=== PATIENT | female | born 1970 | race African-American/Black ===

== ENCOUNTER 2018-06-22 18:05 | Emergency (ER) ==
[~2018-06-22] VITALS: Ht 157.5 cm; Wt 52.6 kg
[~2018-06-22 18:05] MED LIST: ALBU25PO2; BECL8.7A5; CITA10TA17; HYDR1TAB
--- NOTE | 2018-06-22 18:27 | NUR ---
BIB SELF FOR ASTHMA ATTACK, POSS INHALED MOLD FROM [facility] WHERE SHE'S STAYING. PT NOTED W ANXIETY. TO ER BED 10, HOOKED TO MONITOR, CHANGED TO GOWN, PROVIDED W WARM BLANKET, AWAITING MD CORRALES.
--- NOTE | 2018-06-22 18:37 | NUR ---
MINERVA DAVIES AT BEDSIDE
[2018-06-22] MEDS ORDERED: LORAZEPAM INJ 2 MG/ML VIAL ONE (18:46)
[2018-06-22] MEDS ORDERED: ALBUTEROL FS 2.5 MG/3 ML VIAL.NEB ONE (18:47)
[2018-06-22] MEDS ORDERED: IPRATROPIUM NEB FS 0.5 MG/2.5 ML AMPUL.NEB ONE (18:47)
--- NOTE | 2018-06-22 18:55 | NUR ---
RT AT BEDSIDE, BREATHING TX STARTED
[2018-06-22] MEDS ORDERED: IPRATROPIUM NEB FS 0.5 MG/2.5 ML AMPUL.NEB NEB ONE (19:00)
[2018-06-22] MEDS ORDERED: LORAZEPAM INJ 2 MG/ML VIAL IM ONE (19:00)
[2018-06-22] MEDS ORDERED: ALBUTEROL FS 2.5 MG/3 ML VIAL.NEB NEB ONE (19:00)
--- NOTE | 2018-06-22 19:26 | NUR ---
REPORT AND PT RECEIVED FROM JANIE PLUMMER FOR JAN. PT IN BED SLEEPING. NAD NOTED. BREATHING EVEN AND UNLBAORED. WILL CONTINUE TO MONITOR.
--- NOTE | 2018-06-22 19:31 | NUR ---
REPORT GIVEN TO MELVIN LIMA FOR JAN
[2018-06-22 20:22] VITALS: BP 126/89
--- NOTE | 2018-06-22 20:23 | NUR ---
Patient discharged to home in stable condition. Written and verbal after care instructions given. Patient verbalizes understanding of instruction.Pt ambulatory with a steady gait
== END 2018-06-22 20:23 | disposition home or self-care (01) ==
LOC: ER 18:10
DX: J45.901 Unspecified asthma with (acute) exacerbation (principal); F41.9 Anxiety disorder, unspecified; F12.10 Cannabis abuse, uncomplicated; I10 Essential (primary) hypertension; F32.9 Major depressive disorder, single episode, unspecified; F17.200 Nicotine dependence, unspecified, uncomplicated; Z60.2 Problems related to living alone; Z88.0 Allergy status to penicillin
CPT/HCPCS: 71045; 93005; 94640; 96372; 99283; 99406; J2060

== ENCOUNTER 2020-10-13 10:54 | Emergency (ER) | payer MEDICAID ==
[~2020-10-13] VITALS: Ht 157.5 cm; Wt 44.5 kg
[2020-10-13 11:04] VITALS: BP 134/103
--- NOTE | 2020-10-13 11:45 | NUR ---
Patient discharged to home in stable condition. Written and verbal after care instructions given. Patient verbalizes understanding of instruction.
== END 2020-10-13 11:45 | disposition home or self-care (01) ==
LOC: ER 11:03
DX: F41.9 Anxiety disorder, unspecified (principal); I10 Essential (primary) hypertension; J45.909 Unspecified asthma, uncomplicated; F32.9 Major depressive disorder, single episode, unspecified; F17.200 Nicotine dependence, unspecified, uncomplicated; Z88.0 Allergy status to penicillin; Z60.2 Problems related to living alone; Z79.899 Other long term (current) drug therapy